=== PATIENT | male | born 1940 | race Caucasian/White ===

== ENCOUNTER 2017-01-04 09:38 | Outpatient (CLI) | payer MEDICARE, OTHER | END 2017-01-04 09:39 | disposition home or self-care (01) | DX: G47.33 Obstructive sleep apnea (adult) (pediatric) (principal) | CPT/HCPCS: 99213; G0463 ==

== ENCOUNTER 2017-03-02 13:59 | Outpatient (CLI) | payer MEDICARE, OTHER | END 2017-03-02 14:00 | disposition home or self-care (01) | LOC: SC 13:59 | PROVIDERS: ATTEND Internal Medicine Pulmonary Disease | DX: G47.33 Obstructive sleep apnea (adult) (pediatric) (principal) | CPT/HCPCS: 99213; G0463; 99212 ==

== ENCOUNTER 2018-05-09 11:06 | Outpatient (CLI) | payer MEDICARE, OTHER | END 2018-05-09 11:07 | disposition home or self-care (01) | LOC: SC 11:06 | PROVIDERS: ATTEND Internal Medicine Pulmonary Disease | DX: G47.33 Obstructive sleep apnea (adult) (pediatric) (principal) | CPT/HCPCS: 99213; G0463; 99212 ==

== ENCOUNTER 2019-06-06 10:39 | Outpatient (CLI) | payer MEDICARE, OTHER ==
--- NOTE | 2019-06-06 11:18 | SLEEP CARE CONSULTATION ---
Information from patient questionnaire entered by Stacy Jules. I have reviewed and concur with the information entered by Stacy Jules. This document represents the service I personally performed and the decisions made by me, Lucy Waters MD, [facility]. History of Present Illness Previous diagnosis: Very Severe, Obstructive Sleep Apnea-Hypopnea Syndrome AHI: 63.7 Reason for follow up: annual Equipment type: CPAP Equipment obtained from: [employer] Prior sleep studies: Yes HPI additional information: HPI: Mr. Palomo was diagnosed to have very severe obstructive sleep apnea- hypopnea syndrome and returns today for annual follow up of CPAP therapy. The patient got his supplies from [employer]. He was fitted with a nasal mask. He continues to use the device nightly and all through the night. The compliance report shows that he uses the device 179 nights out of the past 180 nights, averaging 8.6 hours a night. The > 4 hour compliance rate for the past 180 days is 99.4%. He complains of no particular problem with the device such as soreness on the face, dry nose, epistaxis, nasal congestion or headache. He thinks that the pressure of 10 - 15 cmH2O is comfortable. On the CPAP therapy he notices improvement in his sleep quality, and that he wakes up feeling fresher in the morning and more awake/alert during the day. [place] Sleepiness Scale score is 5. His notices no snore at all. The average residual AHI is 2.8 (was 1.3 last year); and average time in large leak per day is 1 second. The 90th percentile pressure is 11.2 cmH2O. CPAP Compliance Data - Data Reviewed with Patient Average duration of nightly device use: 8h 34m Compliance rate %: 99.4 Current pressure setting (cmH2O): 10-15 Humidity settin Heated hose settin Average residual AHI: 2.8 Average large leak: 1s Subjective Patient concerns: reports: mask discomfort Current pressure setting perceived as: comfortable Initial [place] Sleepiness Scale score: 9 Current [place] Sleepiness Scale score: 5 Allergies and Home Medications Drug allergies reviewed: Yes Home medication list reviewed: Yes Allergy and home medication list: Current Medications: Lipitor, carvedilol, furosemide, isosorbide mononitrate, metformin, cholchicine, lisinopril, and warfarin Allergies: no known drug allergies Review of Systems Review of systems same as previous: Yes Physical Exam Weight: 200 lb Impression and Plan IMPRESSION: 1. Obstructive Sleep Apnea-Hypopnea Syndrome, very severe, with the patient continuing to do well on nasal CPAP therapy. He has excellent compliance and significant clinical benefits. The current pressure appears effective and comfortable. Overall, he is very satisfied with treatment and plans to continue with it long-term. He would like to switch to a different durable medical supplier because he has not been getting any supplies from [employer]. PLAN: 1. Continue with autoCPAP set between 10 and 15 cm H2O. 2. Try to lose more weight 3. Try [employer] DreamWear nasal cushion mask/nasal pillows/DreamWisp. 4. Prescription made for CPAP supplies so that he may switch durable medical supplier. 5. Return in one year for follow up or earlier if there is any problem. I spent 100% of this 20 minute visit face to face with the patient with greater than 50% of this was spent time counseling the patient and coordination of care.
== END 2019-06-06 10:40 | disposition home or self-care (01) ==
LOC: SC 10:39
PROVIDERS: ATTEND Internal Medicine Pulmonary Disease
DX: G47.33 Obstructive sleep apnea (adult) (pediatric) (principal)
CPT/HCPCS: 99213; G0463; 99212

== ENCOUNTER 2020-06-12 17:31 | Emergency (ER) | payer MEDICARE, OTHER ==
[2020-06-12 17:45] VITALS: BP 154/85
[2020-06-12] MEDS ORDERED: SILVER NITRATE APPLICATOR TOP STA (18:41)
--- NOTE | 2020-06-12 18:44 | ED Physician Documentation ---
History of Present Illness - Stated complaint Stated Complaint: RT NOSTRIL NOSEBLEED - Chief complaint Chief Complaint: Heent - History obtained from History obtained from: Patient - History of Present Illness Timing: Prior to arrival - Additonal information Additional information: 79-year-old male comes emergency department for evaluation of right epistaxis. He reports that he blew his nose this afternoon about 2 PM and developed the nosebleed. He has intermittently been holding pressure and gets it to stop before it rebleeds again. By the time he arrived to the ER this evening it has stopped. He is anticoagulated on Coumadin. He does have a history of atrial fibrillation as well as a pacemaker. He denies any recent trauma, fevers. He does use a nasal CPAP device at night. Reports that it is cleansed to daily with the "so clean" device Review of Systems Constitutional: reports: Reviewed and negative Eyes: reports: Reviewed and negative Ears: reports: Reviewed and negative Nose: reports: Epistaxis (right) Throat: reports: Reviewed and negative Cardiac: reports: Reviewed and negative Respiratory: reports: Reviewed and negative GI: reports: Reviewed and negative : reports: Reviewed and negative PD PAST MEDICAL HISTORY - Past Medical History Cardiovascular: High cholesterol, Atrial fibrillation Respiratory: Sleep apnea, CPAP use Endocrine/Autoimmune: Type 2 diabetes - Past Surgical History Past Surgical History: Yes Cardiovascular: Coronary stent, Pacemaker - Present Medications Home Medications: Ambulatory Orders Medication Instructions Recorded Confirmed Aspirin [Carmen Chewable Aspirin] 81 mg PO DAILY 07/20/15 06/12/20 Atorvastatin [Lipitor] 40 mg PO DAILY 07/20/15 06/12/20 Carvedilol [Coreg] 12.5 mg PO DAILY 07/20/15 06/12/20 Furosemide [Lasix] 40 mg PO DAILY 07/20/15 06/12/20 Isosorbide Mononitrate ER [Imdur] 60 mg PO DAILY 07/20/15 06/12/20 Losartan [Cozaar] 100 mg PO DAILY 07/20/15 06/12/20 Warfarin [Coumadin] 5 mg PO DAILY 07/20/15 06/12/20 metFORMIN [Glucophage] 1,000 mg PO DAILY 07/20/15 06/12/20 Colchicine 0.6 mg PO BID 06/12/20 06/12/20 amLODIPine [Norvasc] 5 mg PO DAILY 06/12/20 06/12/20 - Allergies Allergies/Adverse Reactions: Allergies Allergy/AdvReac Type Severity Reaction Status Date / Time No Known Drug Allergies Allergy Verified 06/12/20 17:45 - Social History Does the pt smoke?: No Smoking Status: Never smoker Does the pt drink ETOH?: No Does the pt have substance abuse?: No - Immunizations Immunizations are current?: Yes PD ED PE EXPANDED - General General: Alert, No acute distress - HEENT HEENT: Atraumatic, PERRL, Right nares epsitaxis (Visible bleeding friable vessels right anterior medial nares.) - Neck Neck: Supple w/out meningeal sx. No: Adenopathy - Cardiac Cardiac: Regular Rate, Irregularly irregular, Radial strong equal, Pedal strong equal, Cap refill < 2 sec - Neuro Neuro: Alert and Oriented X 3, CNII-XII intact - GCS Eye Opening: Spontaneous Motor: Obeys Commands Verbal: Oriented Total: 15 Results - Vitals Vitals: Vital Signs - 24 hr 06/12/20 17:36 Temperature 36.3 C L Heart Rate 89 Respiratory 16 Rate Blood Pressure 154/85 H O2 Saturation 99 Oxygen O2 Source Room air - Labs Labs: Laboratory Tests 06/12/20 18:04 Whole Blood INR 3.1 H Procedures - Epistaxis Site: Right Preparation: Clots removed Treatment: Silver Nitrate Other: Observed - no bleeding, Pt tolerated well PD MEDICAL DECISION MAKING - ED course Complexity details: reviewed results, d/w patient ED course: 79-year-old male presents emergency department for evaluation of right-sided epistaxis. This occurred this afternoon after he blew his nose. He is on Coumadin secondary to history of atrial fibrillation. His INR is 3.1 today. On exam he did have a large clot that was evacuated with gentle blow. He did have some minor bleeding in the right anterior medial nares. It was easily cauterized with silver nitrate no further bleeding noted. Patient was advised to not wear his nasal CPAP for the next 48 hours. Emergent return precautions discussed. Departure - Departure Disposition: 01 Home, Self Care Clinical Impression: Right-sided epistaxis, Anticoagulated Condition: Stable Record reviewed to determine appropriate education?: Yes Comments: Shaggy we did use silver nitrate to cauterize the small bleed that you had in your right nose. I would like you to avoid using her nasal CPAP for the next 2 nights. Over the next 48 hours please avoid forcefully blowing your nose. If at any point you develop a new nosebleed hold firm but gentle pressure for 30 minutes. If unable to get the bleeding to stop then return to the ER. Your INR today was 3.1. Continue the Coumadin as you have been taking it.
== END 2020-06-12 19:00 | disposition home or self-care (01) ==
LOC: ED 17:31
DX: R04.0 Epistaxis (principal); I48.91 Unspecified atrial fibrillation; Z79.01 Long term (current) use of anticoagulants; Z95.0 Presence of cardiac pacemaker; E11.9 Type 2 diabetes mellitus without complications; Z79.84 Long term (current) use of oral hypoglycemic drugs
CPT/HCPCS: 30901; 85610; 99282; 99283

== ENCOUNTER 2020-06-17 17:25 | Outpatient (CLI) | payer MEDICARE, OTHER | END 2020-06-17 17:26 | disposition home or self-care (01) | LOC: COV 17:25 | PROVIDERS: ATTEND Family Medicine | DX: R53.83 Other fatigue (principal); R68.83 Chills (without fever); Z20.828 Contact with and (suspected) exposure to other viral communicable diseases ==

== ENCOUNTER 2020-07-01 10:34 | Outpatient (CLI) | payer MEDICARE, OTHER ==
--- NOTE | 2020-07-01 12:29 | SLEEP CARE CONSULTATION ---
Information from patient questionnaire entered by Joy Villa. I have reviewed and concur with the information entered by Joy Villa. This document represents the service I personally performed and the decisions made by me, Lucy Waters MD, [facility]. History of Present Illness Service Date and Time: 07/01/2020 1034 Previous diagnosis: Very Severe, Obstructive Sleep Apnea-Hypopnea Syndrome AHI: 63.7 (in 2011) Reason for follow up: annual (last seen 05/2019) Equipment type: CPAP Equipment obtained from: [employer] Prior sleep studies: Yes Year and Where: 2012 - [facility] Type of Sleep Study: Polysomnography HPI additional information: HPI: Mr. Palomo was diagnosed to have very severe obstructive sleep apnea- hypopnea syndrome and returns today with his for annual follow up of CPAP therapy. The patient got his supplies from [employer] (was [employer]). He was fitted with a nasal mask. He continues to use the device nightly and all through the night. The compliance report shows that he uses the device 363 nights out of the past 365 nights, averaging 8.7 hours a night. The > 4 hour compliance rate for the past 365 days is 99.5%. He complains of no particular problem with the device such as soreness on the face, dry nose, epistaxis, nasal congestion or headache. He thinks that the pressure of 8 (was 10 15) cmH2O is comfortable. The pressure was lowered in July of last year but for unclear reasons. On the CPAP therapy he notices improvement in his sleep quality, and that he wakes up feeling fresher in the morning and more awake/alert during the day. [place] Sleepiness Scale score is 5. His notices no snore at all. The average residual AHI is 7.7 (was 2.8 last year); and average time in large leak per day is 4 second. The 90th percentile pressure is 8.4 cmH2O. CPAP Compliance Data - Data Reviewed with Patient Average duration of nightly device use: 8 hr 49 min Compliance rate %: 98.3 (180 days) Current pressure setting (cmH2O): 8 Humidity settin Heated hose settin Average residual AHI: 7.0 Average large leak: 7 sec Subjective Patient concerns: reports: mask leak noise Initial [place] Sleepiness Scale score: 9 (in 2012) Current [place] Sleepiness Scale score: 4 Allergies and Home Medications Drug allergies reviewed: Yes Home medication list reviewed: Yes Review of Systems Review of systems same as previous: Yes Physical Exam Vital signs obtained and entered by: To minimize the risk of COVID-19 exposure, detailed exam was not performed. Height: 5 ft 10 in Weight: 195 lb Body Mass Index: 27.9 BMI Classification: Overweight Impression and Plan IMPRESSION: 1. Obstructive Sleep Apnea-Hypopnea Syndrome, very severe, with the patient continuing to do well on nasal CPAP therapy. He has excellent compliance and significant clinical benefits. The current pressure appears slightly ineffective but comfortable. Overall, he is very satisfied with treatment and plans to continue with it long-term. Because of the elevated residual AHI, I will set his autoCPAP back to the original setting of 10 - 15 cmH2O. PLAN: 1. AutoCPAP set to 10 and 15 cm H2O. 2. Try to lose more weight 3. Return in one year for follow up or earlier if there is any problem. Visit Type: In Office Time Spent with Patient (minutes): 20 Provider Statement: I spent 100% of the Face to Face Visit with the patient with greater than 50% spent counseling the patient and coordination of care.
== END 2020-07-01 10:35 | disposition home or self-care (01) ==
LOC: SC 10:34
PROVIDERS: ATTEND Internal Medicine Pulmonary Disease
DX: G47.33 Obstructive sleep apnea (adult) (pediatric) (principal); E66.3 Overweight; Z68.27 Body mass index [BMI] 27.0-27.9, adult
CPT/HCPCS: 99213; G0463; 99212

== ENCOUNTER 2020-10-01 10:34 | Outpatient (CLI) | payer MEDICARE, OTHER ==
--- NOTE | 2020-10-01 12:58 | XRAY Report ---
PROCEDURE: Ankle 3 View RT INDICATIONS: RT HEEL PAIN TECHNIQUE: 3 views of the ankle were acquired. COMPARISON: Right foot radiograph dated 02/14/2013 FINDINGS: Bones: No fractures or dislocations. Ankle mortise is normally aligned. No suspicious bony lesions . Small dorsal calcaneal enthesophyte is seen. Mild tibiotalar and talonavicular joint osteophytic c hanges are seen. Soft tissues: No tibiotalar joint effusion. Achilles tendon appears normal. 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 No fracture or dislocation. Small campbell jane calcaneal enthesophyte. Ankle mortise is congruent. Reviewed by: Ashwin Steele MD on 10/01/2020 12:57 PM PDT Approved by: Ashwin Steele MD on 10/01/2020 12:57 PM PDT Station ID: [id number]
--- NOTE | 2020-10-01 12:59 | XRAY Report ---
PROCEDURE: Calcaneus RT INDICATIONS: RT HEEL PAIN TECHNIQUE: Two views of the calcaneus were acquired. COMPARISON: Right foot radiograph dated November 14, 2012 FINDINGS: Bones: No fractures or dislocations. Well-defined dorsal calcaneal enthesophyte is seen. No suspici ous bony lesions. Soft tissues: Vascular calcifications are noted in ankle and hindfoot soft tissue. Achilles tendon a ppears normal. IMPRESSION: Well-defined dorsal calcaneal enthesophyte. No calcaneal fracture or dislocation. No suspicious bony lesion. Vascular calcifications. Reviewed by: Ashwin Steele MD on 10/01/2020 12:57 PM PDT Approved by: Ashwin Steele MD on 10/01/2020 12:57 PM PDT Station ID: [id number]
== END 2020-10-01 10:35 | disposition home or self-care (01) ==
LOC: DI 10:34
PROVIDERS: ATTEND Physician Assistant Medical
DX: M19.071 Primary osteoarthritis, right ankle and foot (principal); M77.31 Calcaneal spur, right foot

== ENCOUNTER 2021-01-01 10:52 | Outpatient (CLI) | payer MEDICARE, OTHER ==
--- NOTE | 2021-01-01 12:06 | XRAY Report ---
PROCEDURE: Hand 3 View LT INDICATIONS: PAIN IN LEFT FINGERS TECHNIQUE: 3 views of the hand(s) acquired. COMPARISON: None FINDINGS: Bones: No fractures or dislocations but there are erosions at the distal aspect of the second middle phalanx and also at the base of the second distal phalanx. Prominent overlying soft tissue swelling is seen.. No suspicious bony lesions. Soft tissues: No suspicious soft tissue calcifications. 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 Alterna tively, erosive arthritic change conceivably could produce this appearance. Reviewed by: John West MD on 01/01/2021 12:05 PM PDT Approved by: John West MD on 01/01/2021 12:05 PM PDT Station ID: [id number]
== END 2021-01-01 10:53 | disposition home or self-care (01) ==
LOC: DI 10:52
PROVIDERS: ATTEND Physician Assistant
DX: M79.645 Pain in left finger(s) (principal); R60.0 Localized edema

== ENCOUNTER 2021-07-21 10:01 | Outpatient (CLI) | payer MEDICARE, OTHER ==
[2021-07-21 12:45] VITALS: BP 129/83
--- NOTE | 2021-07-21 12:45 | SLEEP CARE CONSULTATION ---
Information from patient questionnaire entered by Cole Lazcano MA. I have reviewed and concur with the information entered by Cole Lazcano MA. This document represents the service I personally performed and the decisions made by me, Lucy Waters MD, [facility]. History of Present Illness Service Date and Time: 07/21/2021 1001 Previous diagnosis: Very Severe, Obstructive Sleep Apnea-Hypopnea Syndrome AHI: 63.7 (in 2011) Reason for follow up: annual (LAST SEEN 06/2020) Equipment type: CPAP Equipment obtained from: [employer] Prior sleep studies: Yes Year and Where: 2011 - [facility] Type of Sleep Study: Polysomnography HPI additional information: HPI: Mr. Palomo was diagnosed to have very severe obstructive sleep apnea- hypopnea syndrome and returns today with his for annual follow up of CPAP therapy. The patient got his supplies from [employer] which is now [facility] in [facility]. He was fitted with a nasal mask. He continues to use the device nightly and all through the night. The compliance report shows that he uses the device 364 nights out of the past 365 nights, averaging 8.7 hours a night. The > 4 hour compliance rate for the past 365 days is 99.5%. He complains of no particular problem with the device such as soreness on the face, dry nose, epistaxis, nasal congestion or headache. He thinks that the pressure of 10 15 cmH2O is too high. On the CPAP therapy he notices improvement in his sleep quality, and that he wakes up feeling fresher in the morning and more awake/alert during the day. [place] Sleepiness Scale score is 4. His notices no snore at all. The average residual AHI is 1; and average time in large leak per day is 5 second. The 90th percentile pressure is 11 cmH2O. Sleep Study - Results Type of Sleep Study: Polysomnography Prior sleep studies: Yes Year and Where: 2011 - [facility] CPAP Compliance Data - Data Reviewed with Patient Average duration of nightly device use: 8 HOURS 51 MINUTES Compliance rate %: 99.4 Current pressure setting (cmH2O): 10-15 Humidity setting: OFF Heated hose settin Average residual AHI: 1.4 Average large leak: 28 SECONDS Subjective Patient concerns: reports: mask leak noise Initial [place] Sleepiness Scale score: 9 (in 2012) Current [place] Sleepiness Scale score: 4 (2021) Allergies and Home Medications Known drug allergies: No Drug allergies reviewed: Yes Home medication list reviewed: Yes Review of Systems Review of systems same as previous: Yes Physical Exam Blood Pressure: 129/83 (RIGHT, PULSE 84) Heart Rate: 84 O2 Saturation: 97 (N95 MASK) Height: 5 ft 10 in Weight: 195 lb (CLOTHES) Body Mass Index: 27.9 BMI Classification: Overweight Impression and Plan IMPRESSION: 1. Obstructive Sleep Apnea-Hypopnea Syndrome, very severe, with the patient continuing to do well on nasal CPAP therapy. He has excellent compliance and significant clinical benefits. The current pressure setting appears effective and comfortable. Overall, he is very satisfied with treatment and plans to continue with it long-term. For his comfort, I will lower the pressure range to 8 12 cmH2O. In regards to the recall on all [employer] DreamStation devices, we discussed the risks and benefits of stopping versus continuing to use the device. In severe cases, it appears the benefits outweigh the risks and it is reasonable to continue until the replace part or machine becomes available. Symptoms that could be related to the recalled sound abatement foam piece are headache, nausea, chest tightness, and upper airway irritation. He denies these symptoms. The patients should also look for debris in the air outlet, water reservoir, and hose. If found, the device should not be used. In [id number] cases, the patients should refrain from using the device. The patient should register the device on [employer]. PLAN: 1. AutoCPAP lowered to 8 - 12 cm H2O via the modem. 2. [employer] her device at [email or web address]. 3. Return in one year for follow up or earlier if there is any problem. Follow up with Sleep Care in: 1 year Time Spent with Patient (minutes): 15
== END 2021-07-21 10:02 | disposition home or self-care (01) ==
LOC: SC 10:01
PROVIDERS: ATTEND Internal Medicine Pulmonary Disease
DX: G47.33 Obstructive sleep apnea (adult) (pediatric) (principal)
CPT/HCPCS: 99212; G0463

== ENCOUNTER 2021-10-07 10:54 | Emergency (ER) | payer MEDICARE, OTHER ==
[2021-10-07 11:05] VITALS: BP 133/79
[2021-10-07] MEDS ORDERED: OXYMETAZOLINE HCL 100 SPRAYS BOTTLE NAS STA (12:00)
[2021-10-07] MEDS ORDERED: TRANEXAMIC ACID 1,000 MG/10 ML VIAL NAS STA (12:00)
--- OUTSIDE RECORDS SUMMARY | 2021-10-07 12:00 | EXTERNAL MEDICAL SUMMARY RPT | Continuity of Care Document ---
:1940 Author Organization [facility] Address [address] [place] [address] Phone Care Team Providers Name Role Phone Omer Unavailable Unavailable Omer Unavailable Unavailable Allergies No information. Encounters No information. Medications No information. Problems date description facility [id number] Primary osteoarthritis, [facility] [id number] Pain in right finger(s) [facility] [id number] Contact with and (suspected) exposure t o [facility] [place] [address] Procedures date description facility [id number] [facility] [id number] [facility] Results No information. Vital Signs date measurement value source [id number] weight_standard 89.36 lb [id number] weight_metric 40.53 kg [id number] temperature_standard 96.8 F [id number] temperature_metric 36 C [id number] respiration_rate 15 /min [id number] height_standard 70.5 in [id number] height_metric 179.07 cm 20210918 heart_rate 59 /min 20210918 BP_systolic 115 mm[Hg] 20210918 BP_diastolic 63 mm[Hg] 20210918 BMI 27.8 kg/m2
--- NOTE | 2021-10-07 12:01 | ED Physician Documentation ---
PD HPI HEENT - Stated complaint Stated Complaint: NOSE BLEEDS - Chief complaint Chief Complaint: Heent - History obtained from History obtained from: Patient - History of Present Illness Timing - onset: Today (this morning), Last night (before bed but it stopped and he was able to sleep okay.) Timing - details: Abrupt onset, Now resolved (lessened bleeding on arrival to ER.) Location: Nose (bleeding right nostril without injury/blowing/congestion. Onset when brushing teeth. NO recent URI.) Improves: Other (holding pressure to nostril) Associated symptoms: No: Fever, Congestion, Swollen nodes, Facial swelling, Headache Similar symptoms before: Diagnosis (had nose bleed several years ago and had cautery of it.) Recently seen: Not recently seen Review of Systems Constitutional: denies: Fever, Chills Nose: reports: Epistaxis. denies: Rhinorrhea / runny nose, Congestion Throat: denies: Sore throat Cardiac: reports: Palpitations (ongoing feeling of heart irregularity from atrial fib.). denies: Chest pain / pressure Respiratory: denies: Dyspnea, Cough GI: denies: Hematemesis, Bloody / black stool Musculoskeletal: denies: Back pain Neurologic: denies: Generalized weakness, Focal weakness, Numbness, Headache, Head injury PD PAST MEDICAL HISTORY - Past Medical History Cardiovascular: High cholesterol, Atrial fibrillation Respiratory: Sleep apnea, CPAP use Endocrine/Autoimmune: Type 2 diabetes - Past Surgical History Past Surgical History: Yes Cardiovascular: Coronary stent, Pacemaker - Present Medications Home Medications: Ambulatory Orders Medication Instructions Recorded Confirmed Aspirin [Carmen Chewable Aspirin] 81 mg PO DAILY 07/20/15 10/07/21 Atorvastatin [Lipitor] 40 mg PO DAILY 07/20/15 10/07/21 Carvedilol [Coreg] 12.5 mg PO DAILY 07/20/15 10/07/21 Furosemide [Lasix] 40 mg PO DAILY 07/20/15 10/07/21 Isosorbide Mononitrate ER [Imdur] 60 mg PO DAILY 07/20/15 10/07/21 Losartan [Cozaar] 100 mg PO DAILY 07/20/15 10/07/21 Warfarin [Coumadin] 5 mg PO DAILY 07/20/15 10/07/21 metFORMIN [Glucophage] 1,000 mg PO DAILY 07/20/15 10/07/21 Colchicine 0.6 mg PO BID 06/12/20 10/07/21 amLODIPine [Norvasc] 5 mg PO DAILY 06/12/20 10/07/21 - Allergies Allergies/Adverse Reactions: Allergies Allergy/AdvReac Type Severity Reaction Status Date / Time No Known Drug Allergies Allergy Verified 10/07/21 11:01 - Social History Does the pt smoke?: No Smoking Status: Never smoker Does the pt drink ETOH?: No Does the pt have substance abuse?: No - Immunizations Immunizations are current?: Yes PD ED PE NORMAL - Vitals Vital signs reviewed: Yes - General General: Alert and oriented X 3, No acute distress, Well developed/nourished - HEENT HEENT: Atraumatic, Pharynx benign, Dentition benign, Other (right nostril passageway with small raised area of inflammation raised to a flat topped redness. MInimaloozing of bleeding initially. Left nostril appears normal. ) - Neck Neck: Supple, no meningeal sign, No adenopathy Results - Vitals Vitals: Vital Signs - 24 hr 10/07/21 11:04 Temperature 36.8 C Heart Rate 86 Respiratory 17 Rate Blood Pressure 133/79 H O2 Saturation 97 Oxygen O2 Source Room air - Labs Labs: Laboratory Tests 10/07/21 10/07/21 12:05 12:05 WBC 4.4 L RBC 3.52 L Hgb 11.0 L Hct 32.7 L MCV 92.9 MCH 31.3 H MCHC 33.6 RDW 14.7 Plt Count 229 MPV 9.2 Neut # (Auto) 2.7 Lymph # (Auto) 0.9 L [place] # (Auto) 0.6 Eos # (Auto) 0.2 Baso # (Auto) 0.0 Absolute Nucleated RBC 0.00 Nucleated RBC % 0.0 PT 56.3 H INR 5.0 H* Procedures - Epistaxis Site: Right, Anterior Preparation: Clots removed, Afrin, Clamp / pressure applied Treatment: Silver Nitrate, Packing inserted (merocel expanding foam placed and then decompressed with more TXA/afrin sprays.) Other: Observed - no bleeding, Pt tolerated well PD MEDICAL DECISION MAKING - ED course Complexity details: reviewed results (INR elevated without obvious cause. No change meds, doses, diet nor activity to account for high level. ), re-evaluated patient (still no obvious bleeding with merocel in place. ), considered differential, d/w patient Departure - Departure Disposition: 01 Home, Self Care Clinical Impression: Anticoagulant long-term use, Acute anterior epistaxis, Supratherapeutic international normalized ratio (INR) Condition: Stable Record reviewed to determine appropriate education?: Yes Instructions: Nosebleed Follow-Up: James Omer MD [Primary Care Provider] - Comments: Hold your Coumadin/warfarin dose today and tomorrow and resume it on . Have your INR rechecked as scheduled. Leave the packing in the right nostril today into tomorrow morning if you can or take it out tonight before bedtime if you need for your CPAP use. Use some Vaseline or such along the nasal wall on the right side once or twice daily after that to keep it moisturized. If you have bleeding again today, leave the packing in and spirits with the Afrin medicine and pinch your nose with the nose clamp for 15 to 20 minutes. Recheck if bleeding despite that. Discharge Date/Time: 10/07/21 13:13
[2021-10-07 12:15] LABS: BASOPHILS % (AUTO) 0.9 %; EOSINOPHILS # (AUTO) 0.2 10^3/uL (0.0-0.7); EOSINOPHILS % (AUTO) 4.8 %; HCT - HEMATOCRIT 32.7 % (42.0-52.0); LYMPHOCYTES # (AUTO) 0.9 10^3/uL (1.5-3.5); LYMPHOCYTES % (AUTO) 20.8 %; MEAN CORPUSCULAR HEMOGLOBIN 31.3 pg (27.0-31.0); MEAN CORPUSCULAR HGB CONC 33.6 g/dL (32.0-36.0); MEAN CORPUSCULAR VOLUME 92.9 fL (80.0-94.0); MEAN PLATELET VOLUME 9.2 fL (7.4-11.4); MONOCYTES # (AUTO) 0.6 10^3/uL (0.0-1.0); MONOCYTES % (AUTO) 12.4 %; NEUTROPHILS # (AUTO) 2.7 10^3/uL (1.5-6.6); NEUTROPHILS % (AUTO) 60.9 %; PLT - PLATELET COUNT 229 10^3/uL (130-450); RED BLOOD COUNT 3.52 10^6/uL (4.70-6.10); RED CELL DISTRIBUTION WIDTH 14.7 % (12.0-15.0); WHITE BLOOD COUNT 4.4 x10^3/uL (4.8-10.8)
[2021-10-07 12:18] LABS: PT - PROTHROMBIN TIME 56.3 secs (9.9-12.6)
[2021-10-07] MEDS ORDERED: SILVER NITRATE APPLICATOR TOP STA (12:18)
== END 2021-10-07 13:13 | disposition home or self-care (01) ==
LOC: ED 10:54
DX: R04.0 Epistaxis (principal); I48.91 Unspecified atrial fibrillation; E11.9 Type 2 diabetes mellitus without complications; Z79.84 Long term (current) use of oral hypoglycemic drugs; Z79.01 Long term (current) use of anticoagulants
CPT/HCPCS: 30901; 36415; 85025; 85610; 99282; 99283; A9270

== ENCOUNTER 2022-08-17 10:10 | Outpatient (CLI) | payer MEDICARE, OTHER ==
[2022-08-17 12:39] VITALS: BP 126/78
--- NOTE | 2022-08-17 12:39 | SLEEP CARE CONSULTATION ---
Information from patient questionnaire entered by Haresh Castillo. I have reviewed and concur with the information entered by Haresh Castillo. This document represents the service I personally performed and the decisions made by me, Lucy Waters MD, [facility]. History of Present Illness Service Date and Time: 08/17/2022 1010 Previous diagnosis: Very Severe, Obstructive Sleep Apnea-Hypopnea Syndrome AHI: 63.7 (in 2011) Reason for follow up: annual (LAST SEEN 06/2021) Equipment type: CPAP Equipment obtained from: [employer] Prior sleep studies: Yes Year and Where: 2011 - [facility] Sleep Type of Sleep Study: Polysomnography HPI additional information: Mr. Palomo was diagnosed to have very severe obstructive sleep apnea-hypopnea syndrome and returns today with his for annual follow up of CPAP therapy. The patient got his supplies from [facility] which is now [facility] in [facility]. He wears nasal pillows. He continues to use the device nightly and all through the night. The compliance report shows that he uses the device 178 nights out of the past 180 nights, averaging 9.3 hours a night. The > 4 hour compliance rate for the past 180 days is 99%. He complains of no particular problem with the device such as soreness on the face, dry nose, epistaxis, nasal congestion or headache. He thinks that the pressure of 8 12 is more comfortable than 10 15 cmH2O which was too high. On the CPAP therapy he notices improvement in his sleep quality, and that he wakes up feeling fresher in the morning and more awake/alert during the day. [place] Sleepiness Scale score is 4. His notices no snore at all. The average residual AHI is 8.6 (was 1) but most of the residual respiratory events are central apneas; and average time in large leak per day is 5 second. The 90th percentile pressure is 11 cmH2O. Sleep Study - Results Type of Sleep Study: Polysomnography Prior sleep studies: Yes Year and Where: 2011 - [facility] Sleep Subjective Initial [place] Sleepiness Scale score: 9 (in 2011) Current [place] Sleepiness Scale score: 4 (08/17/22) Allergies and Home Medications Drug allergies reviewed: Yes Home medication list reviewed: Yes Allergy and home medication list: Allergies No Known Drug Allergies Allergy (Verified 10/07/21 11:01) Review of Systems Review of systems same as previous: Yes Physical Exam Vital signs obtained and entered by: HARESH Hill MA Blood Pressure: 126/78 (LEFT ARM) Cuff size: regular Heart Rate: 80 O2 Saturation: 97 Height: 5 ft 10 in Weight: 202 lb 3.2 oz Body Mass Index: 29.0 BMI Classification: Overweight Impression and Plan IMPRESSION: 1. Obstructive Sleep Apnea-Hypopnea Syndrome, very severe, with the patient continuing to do well on nasal CPAP therapy. He has excellent compliance and significant clinical benefits. The current pressure setting may be too high given the frequent central apneas. Because the CPAP is now older than the useful life of 5 years, I will order the patient a new one and make it an autoCPAP set between 6 and 10 cmH2O. PLAN: 1. Prescription made for a new autoCPAP, heated humidifier, and related supplies. 2. Return for follow up after one month of using the CPAP. Prescriptions: Auto CPAP Follow up with Sleep Care in: 1-2 months Visit Type: In Office Other Participants: Spouse/Significant Other Time Spent with Patient (minutes): 15 Provider Statement: I spent 100% of the Face to Face Visit with the patient with greater than 50% spent counseling the patient and coordination of care.
== END 2022-08-17 10:11 | disposition home or self-care (01) ==
LOC: SC 10:10
PROVIDERS: ATTEND Internal Medicine Pulmonary Disease
DX: G47.33 Obstructive sleep apnea (adult) (pediatric) (principal); E66.3 Overweight; Z68.29 Body mass index [BMI] 29.0-29.9, adult
CPT/HCPCS: 99212; G0463

== ENCOUNTER 2023-10-06 05:26 | Outpatient (CLI) | payer MEDICARE, OTHER | END 2023-10-06 23:59 | disposition EMS.NT | LOC: EMS 05:26 | DX: R53.1 Weakness (principal) ==